=== PATIENT | female | born 1990 | race Caucasian/White ===

== ENCOUNTER → 2016-11-11 | Outpatient (CLI) | payer MEDICAID | LOC: FIMAGING 13:30 | PROVIDERS: ATTEND Family Medicine | DX: Z34.92 Encounter for supervision of normal pregnancy, unspecified, second trimester (principal); Z3A.26 26 weeks gestation of pregnancy ==

== ENCOUNTER 2017-02-15 15:20 | Inpatient (IN) | payer MEDICAID ==
--- NOTE | 2017-02-15 16:05 | OBPROG ---
OBG Labor Progress Note Assessment/Plan: Assessment: irregular contractions exam 80/-1 cephalic posterior soft cat1 fhr care with [facility] routinely feeling positive movement deneis leaking bleeding or cramping Plan:monitor x1 hour to assess baby and contractions pattern 02/15/17 16:01 Subjective: doing well. Denies pain. I have been having contractions off and on for several days. No regular contractions today. - SVE Dilation (cm): 3 Effacement (%): 80 Station: -2 - Physical Exam General Appearance: WD/WN, alert, no apparent distress Respiratory: chest non-tender, lungs clear, normal breath sounds Cardiac/Chest: regular rate, rhythm Abdomen: normal bowel sounds Extremities: Kian's sign (negative bilaterally) DTR- Lower Extremities: Knee (R): 1+, Knee (L): 1+ Skin: normal color, warm/dry Neuro/Psych: no motor/sensory deficits, alert, normal mood/affect, oriented x 3 Oxytocin Orders Assessment - Pre-Induction/Augmentation Assessment Gestational Age: 40 week(s) and 3 day(s) ICD10 Worksheet Patient Problems: Problems Problem Status Onset labor check Acute
--- NOTE | 2017-02-15 16:56 | GHP ---
[f rep st] HISTORY AND PHYSICAL DATE OF ADMISSION: 02/15/2017 HISTORY OF PRESENT ILLNESS: Patient is a 26-year-old, 5, para 2, with an EDC of 02/12/2017, which gives her a gestational age of 40 and 3/7 weeks who comes into Labor and Delivery on 02/14/2017 with complaints of irregular contractions times several days and no regular contractions today. States feeling positive movement. Poor compliance with routine care. Gestational diabetic diet control. Denies leaking, bleeding and regular cramping. MEDICAL HISTORY: The patient has asthma and uses an emergency inhaler, has not done so recently. NKDA ROS Neg. CV, Resp: asthma, skin no rashes, Pysch negative, HEENT negative, extremities negative edema, negative homens sign bilaterally, MS: negative, Negative , Neg GI, SURGICAL HISTORY: Denies. GYNECOLOGICAL HISTORY: Denies. FAMILY HISTORY: Noncontributory. SOCIAL HISTORY: Patient is . No alcohol with the . States no marijuana, no narcotics, denies tobacco use. Denies street drug use. PREVIOUS HISTORY: Patient has an 8-year old, who was term, went into the NICU with difficulties breathing, weight 7 pounds 3 ounces, 24-hours of labor, a 3-year old, who was a term, 24-hours of labor, 8 pounds 6 ounces, denies any problems with that delivery. ALLERGIES: The patient is not allergic to any medications. MEDICATIONS: Taking vitamins. HISTORY: Patient states that she has gestational diabetes. She does 3-fingersticks daily and is in relatively good control. One high during the whole time that she has been doing fingersticks. PHYSICAL EXAMINATION: GENERAL: The patient is awake alert oriented x3. LUNGS : Clear bilaterally. ABDOMEN: Bowel sounds are positive in all 4-quadrants. EXTREMITIES: DTRs are 1+ bilaterally with no clonus. Homans sign is negative. Category 1 strip, irregular contractions exam, patient is 3/80/, -2, posterior and soft. LABORATORY DATA: At this time, I do not have record to refer to for labs. PLAN OF CARE: 1. Continuous monitoring, NST, review of contractions. 2. regular contractions after intial exam. Reexam 6100/-1 cephalic will admit for labor 3. Admit for labor /[id number]/MODL MTDD
[2017-02-15] MEDS ORDERED: EPSOM SALT 454 GM TP PRN (18:51)
[2017-02-15] MEDS ORDERED: LR 1,000 ML IV PRN (18:51)
[2017-02-15] MEDS ORDERED: OXYTOCIN/RINGERS LACTATE 1,000 ML IV PRN (18:51)
[2017-02-15] MEDS ORDERED: ACETAMINOPHEN 500 MG TAB PO PRN (18:51)
[2017-02-15] MEDS ORDERED: TERBUTALINE SULFATE 1 MG/ML VIAL IV PRN (18:51)
[2017-02-15] MEDS ORDERED: OLIVE OIL 118 ML BTL MISC PRN (18:51)
--- NOTE | 2017-02-15 19:14 | OBPROG ---
OBG Labor Progress Note Assessment/Plan: Assessment: [id number] with IUP@ 40-3wks Active labor GBS Neg Cat 1 FHR tracing Plan: consider AROM pain management PRN- N2O if desired reassess 2-4hr/PRN consult with MD HOANG anticipate 02/15/17 19:14 Subjective: pt doing well, she is breathing through contractions declines pain medication at this time; is interested in N2O FOB @ BS, supportive Objective: VSS, normotensive, afebrile - SVE Dilation (cm): 6 Effacement (%): 100 Station: -1 (soft, anterior; exam by Rafael ZEPEDA) Oxytocin Orders Assessment - Pre-Induction/Augmentation Assessment Gestational Age: 40 week(s) and 3 day(s) ICD10 Worksheet Patient Problems: Problems Problem Status Onset labor check Acute
[2017-02-15 19:29] LABS: % IMMATURE GRANULYOCYTES 1.4 % (0.0-1.1); ABSOLUTE IMMATURE GRANULOCYTES 0.25 10^3/uL (0.00-0.10); ADD DIFF? NO; ADD MORPH? NO; ADD SCAN? NO; ATYPICAL LYMPHOCYTE FLAG 10 (0-99); FRAGMENT RBC FLAG 0 (0-99); HEMATOCRIT 38.6 % (38.0-47.0); LEFT SHIFT FLG 10 (0-99); LIPEMIA HEMOLYSIS FLAG 80 (0-99); MEAN CELL HEMOGLOBIN CONCENTR. 33.7 g/dL (32.4-36.7); MEAN CELL VOLUME 91.9 fL (81.5-99.8); MEAN PLATELET VOLUME 10.6 fL (8.7-11.7); PLATELET CLUMPS FLAG 10 (0-99); PLATELET COUNT 272 10^3/uL (150-400); RED CELL DISTRIBUTION WIDTH 13.6 % (11.5-15.2)
[2017-02-15] MEDS ORDERED: TERBUTALINE SULFATE 1 MG/ML VIAL ONE (19:44)
[2017-02-15] MEDS ORDERED: AMMONIA AROMATIC 1 EACH AMP IH ONE (19:44)
[2017-02-15] MEDS ORDERED: OLIVE OIL 118 ML BTL ONE (19:44)
[2017-02-15] MEDS ORDERED: LIDOCAINE 1% 300 MG/30 ML SDV ONE (19:44)
[2017-02-15] MEDS ORDERED: OXYTOCIN 10 UNIT/ML VIAL ONE (19:45)
[2017-02-15] MEDS ORDERED: MISOPROSTOL 200 MCG TAB ONE (19:45)
[2017-02-15] MEDS ORDERED: BUPIVACAINE 0.25% 30 ML SDV ONE (19:55)
[2017-02-15] MEDS ORDERED: PHENYLEPHRINE HCL 100 MCG/ML SYR ONE (19:55)
[2017-02-15] MEDS ORDERED: fentaNYL 2MCG/ML/BUP 0.1% RTU 100 ML BAG EP ONE (19:55)
[2017-02-15] MEDS ORDERED: fentaNYL 100 MCG/2 ML INJ ONE (19:56)
--- NOTE | 2017-02-15 20:49 | OBDEL ---
Info Type: Vaginal GBS+: No Indications for Delivery: Spontaneous Labor Vaginal Delivery - Labor and Delivery Onset of Contractions Date: 02/15/17 Onset of Contractions Time: 16:00 Onset of Contractions Type: Spontaneous Rupture of Membranes Date: 02/15/17 Rupture of Membranes Time: 19:58 Rupture of Membranes Type: Spontaneous Amniotic Fluid Color: Clear Dilation Complete Date: 02/15/17 Dilation Complete Time: 19:56 Placenta Delivery Date: 02/15/17 Placenta Delivery Time: 20:20 Total Hours of Labor: 4 Vaginal Sponge Count Correct: Yes Vaginal Needle Count Correct: Yes Vaginal Sweep Performed: Yes EBL: 200 Delivery Events: None Delivery Comment: , viable female no complications [place] [facility] Delivery Date: 02/15/17 Delivery Time: 20:14 TERRY: 02/12/17 Gestational Age: 40 week(s) and 3 day(s) Sex of Infant: Female Score (1 Min): 8 Score (5 Min): 8 ICD10 Worksheet Patient Problems: Problems Problem Status Onset (normal spontaneous vaginal delivery) Acute labor check Acute - ICD10 Problem Qualifiers (1) (normal spontaneous vaginal delivery)
[2017-02-15] MEDS ORDERED: HYDROCORTISONE 0.5% CREAM TP PRN (20:52)
[2017-02-15] MEDS ORDERED: DOCUSATE SODIUM 100 MG CAP PO PRN (20:52)
[2017-02-15] MEDS ORDERED: SIMETHICONE 80 MG TAB CHEW PO PRN (20:52)
[2017-02-15] MEDS ORDERED: HYDROCODONE/APAP 5/325 TAB PO PRN (20:58)
[2017-02-15] MEDS: IBUPROFEN 600 MG TAB PO PRN (21:38)
[2017-02-15 23:33] VITALS: TEMP 97.9
--- NOTE | 2017-02-16 08:32 | OBPP ---
Progress Note Assessment/Plan: Assessment: s/p PPD #1 - pt is stable Plan: Continue routine pp care Plan for d/c this evening if baby is discharged home Instructions reviewed with pt No Rx given Cont PNV Pelvic rest RTC in 4 and 6 weeks-pt would like to f/u with [facility] 02/16/17 08:29 Subjective: Pt seen and examined. Doing well with no complaints. Mild cramping, relief with Motrin. Moderate lochia. Pt is OOB, dwight reg diet, voiding and passing flatus. No BM yet. BF without difficult. Objective: 02/15/17 19:10 Patient ABO/Rh A POSITIVE 02/15/17 19:10 Temp Pulse Resp BP Pulse Ox 36.6 C 82 18 116/73 95 02/15/17 23:32 02/15/17 23:32 02/15/17 23:32 02/15/17 23:32 02/15/17 23:32 Uterine Position/Fundal Height: Umbilicus -2 Uterine Tone: Firm Physical Exam - Physical Exam General Appearance: WD/WN, alert, no apparent distress Respiratory: lungs clear, normal breath sounds Cardiac/Chest: regular rate, rhythm Abdomen: normal bowel sounds, non-tender, soft, flatus (+) Extremities: non-tender, normal inspection Skin: normal color, warm/dry Neuro/Psych: alert, normal mood/affect, oriented x 3
--- NOTE | 2017-02-16 08:35 | OBGCSDC ---
General Delivery Information - General Info : 3 Para: 2 Abortions: 0 Delivery Physician/CNM: Sofía Peraza Admission Date: 02/15/17 Labs: Patient ABO/Rh A POSITIVE 02/15/17 19:10 Hct 38.6 % (38.0-47.0) 02/15/17 19:10 Vaginal - Diagnosis Labor: Spontaneous Rupture of Membranes Type: Spontaneous Amniotic Fluid Color: Clear Delivery Events: None - Operations/Procedures L&D Analgesia/Anesthesia Type: None - Hospital Course Antepartum: care at [facility]. Obesity, ?GDM Intrapartum: Spontaneous labor; SROM-clear. Uncomplicated : Uncomplicated. Mild cramping. Moderate lochia. BF without difficulty. - Delivery L&D Analgesia/Anesthesia Type: None [facility] Delivery Date: 02/15/17 Delivery Time: 20:14 TERRY: 02/12/17 Gestational Age: 40 week(s) and 4 day(s) Sex of Infant: Female Score (1 Min): 8 Score (5 Min): 8 Discharge Information - Discharge Information Discharge Medications: Ibuprofen, Vitamins Condition: Good Instruction/Follow Up: Four Weeks, Six Weeks Discharge Physician/CNM: Sherry Crockett
[2017-02-16 09:22] VITALS: BP 110/71; PULSE 75; RESP 17; O2SAT 96
[2017-02-16] MEDS: IBUPROFEN 600 MG TAB PO PRN (09:46)
== END 2017-02-16 17:40 | disposition home or self-care (01) | DRG 775 ==
LOC: FLD 15:20 → OBSVTOIN 18:50 → FOB 23:15
PROVIDERS: ADMIT Advanced Practice Midwife; ATTEND Advanced Practice Midwife
PROC: 10E0XZZ Delivery of Products of Conception, External Approach (ICD-10-PCS; principal; 2017-02-15)
DX: O24.410 Gestational diabetes mellitus in pregnancy, diet controlled (principal); Z37.0 Single live birth; Z3A.40 40 weeks gestation of pregnancy
CPT/HCPCS: J2370; J2590; J3010; J3105

== ENCOUNTER 2017-09-11 15:31 | Emergency (ER) | payer MEDICAID ==
[2017-09-11 15:45] VITALS: RESP 16; TEMP 99
--- NOTE | 2017-09-11 17:15 | EDPHY ---
H & P Time Seen by Provider: 09/11/17 15:43 HPI/ROS: 26-year-old female presents complaining of lump in her left armpit. She attempted to drain it on her own with a sewing needle. She states she has had 1 other abscess like this which she drained on her own. Review of systems As per HPI General no fever no chills no weakness HEENT no eye pain no eye discharge. No eye redness, no sore throat Respiratory no cough, no shortness of breath Cardiac no chest pain, no peripheral edema GI no abdominal pain, no diarrhea, no constipation, no nausea, no vomiting no flank pain, no hematuria, no dysuria Musculoskeletal no myalgias, no joint pain Heme no easy bruising, no easy bleeding Endo no polyuria, no polydipsia Skin positive rashes, no pruritus Neuro no syncope, no dizziness, no headaches Psych is no suicidal ideation, no homicidal ideation Past Medical/Surgical History: History of gestational diabetes Social History: Denies alcohol or drug use Patient has 3 daughters ages 9, 4 and 7 months Smoking Status: Never smoked Physical Exam: Alert and oriented in no acute distress nontoxic appearance, afebrile Atraumatic normocephalic Neck no JVD Lungs clear to auscultation, no respiratory distress Heart regular rate and rhythm Extremities no cyanosis clubbing edema Left axillary area inner aspect of upper arm-2 cm palpable firm mass, with very light circumferential erythema, tender to palpation Not pulsatile Constitutional: Initial Vital Signs Temperature (C) 37.2 C 09/11/17 15:41 Heart Rate 87 09/11/17 15:41 Respiratory Rate 16 09/11/17 15:41 Blood Pressure 133/79 H 09/11/17 15:41 O2 Sat (%) 96 09/11/17 15:41 O2 Delivery Mode Room Air Allergies/Adverse Reactions: No Known Allergies Allergy (Unverified 09/19/10 13:53) Home Medications: Medication Instructions Recorded Albuterol HFA 17g 09/19/10 5-Htp 09/11/17 Clindamycin HCl [Clindamycin] 300 mg PO TID 5 Days #15 cap 09/11/17 09/11/17 Vitamin D2 09/11/17 Medical Decision Making Procedures: Abscess-procedure note The patient gave verbal consent for drainage of a subcutaneous abscess. Risk of bleeding and pain were explained to the patient. The most fluctuant aspect of the abscess was identified. Local anesthetic lidocaine 1% was used. A scalpel was used to incise the abscess. 10 mL of purulent drainage was expressed. Abscess was irrigated and packed. The patient tolerated procedure well. ED Course/Re-evaluation: Patient seen and evaluated for lump on her left upper inner arm. Impression Subcutaneous abscess Plan Incision and drainage, packing Home on clindamycin, for MRSA coverage safe in Encourage warm compresses Advised patient to follow up in 2-3 days for recheck and possible for repeat packing Differential Diagnosis: Cellulitis, pimple, boil, abscess, lymph node Departure - Departure Disposition: Home, Routine, Self-Care Clinical Impression: Axillary abscess Condition: Good Instructions: Abscess (ED) Referrals: [facility] [Other] - As per Instructions Prescriptions: Clindamycin HCl [Clindamycin] 300 mg PO TID 5 Days #15 cap
[2017-09-11 17:28] VITALS: BP 126/78; PULSE 61; O2SAT 98
== END 2017-09-11 17:27 | disposition home or self-care (01) ==
LOC: CED 15:31
PROC: 0H9CXZZ Drainage of Left Upper Arm Skin, External Approach (ICD-10-PCS; principal; 2017-09-11)
DX: L02.412 Cutaneous abscess of left axilla (principal)